=== PATIENT | female | born 1960 | race Caucasian/White ===

== ENCOUNTER 2016-07-27 10:08 | Day surgery (SDC) | payer OTHER ==
[~2016-07-27 10:08] MED LIST: EPINEPHrine 1 MG/10 ML SYR IVP ONE; LIDOCAINE 1% 30 ML SDV ONE; LIDOCAINE 2% JELLY 5 ML TUBE ONE
[2016-07-27] MEDS ORDERED: LIDOCAINE 1% 5 ML SDV ONE (10:30)
[2016-07-27] MEDS ORDERED: ALBUTEROL 3 ML DEYVIAL ONE (10:55)
[2016-07-27] MEDS ORDERED: MIDAZOLAM 2 MG/2 ML VIAL ONE ×2 (10:59→11:32)
[2016-07-27] MEDS ORDERED: fentaNYL 100 MCG/2 ML INJ ONE ×2 (11:00→11:32)
--- NOTE | 2016-07-27 12:46 | GPN ---
[f rep st] PROCEDURE NOTE DATE OF PROCEDURE: 07/27/2016 PROCEDURE: Fiberoptic bronchoscopy. INDICATION: Bilateral hilar adenopathy. ANESTHESIA: She received 4% lidocaine nebulized and 1% lidocaine topically. She also received Vers ed 6 mg, fentanyl 125 mcg. DESCRIPTION OF PROCEDURE: The procedure was performed in the Endoscopy Suite with continuous pulse oximetry, EKG, blood pressure monitoring. Please note this was performed in negative-pressure room and N95 masks were used by all involved. The bronchoscope was entered orally. Vocal cords were visualized and opposed easily. Trachea and c jonah were visualized and showed no endobronchial lesions, a normal-appearing mucosa. Bronchoscope in the left lung: Left upper lobe, lingula, left lower lobe, including sub-segments were subsequent ly visualized and showed no endobronchial lesions and normal-appearing mucosa. Bronchoscope in the right lung: Right upper lobe, right middle lobe, right lower lobe including sub-segments were subse quently visualized and showed no endobronchial lesions and normal-appearing mucosa. Via fluoroscopy , transbronchial biopsies were taken from the right lower lobe. These were sent for pathology. Bro nchoalveolar lavage was then taken from the right lower lobe. This sent for C and S, AFB, fungal cu ltures, and cytology. The patient tolerated the procedure well. There were no apparent complicatio ns. A portable chest x-ray has been called for. /[id number]/MODL
== END 2016-07-27 12:55 | disposition home or self-care (01) ==
LOC: FSGY 10:08
PROVIDERS: ATTEND Internal Medicine Pulmonary Disease
PROC: 0B968ZX Drainage of Right Lower Lobe Bronchus, Via Natural or Artificial Opening Endoscopic, Diagnostic (ICD-10-PCS; principal; 2016-07-27 11:00)
PROC: 0BB68ZX Excision of Right Lower Lobe Bronchus, Via Natural or Artificial Opening Endoscopic, Diagnostic (ICD-10-PCS; principal; 2016-07-27 11:00)
PROC: BB12ZZZ Fluoroscopy of Right Lung (ICD-10-PCS; principal; 2016-07-27 11:00)
DX: R91.8 Other nonspecific abnormal finding of lung field (principal); I48.91 Unspecified atrial fibrillation; F32.9 Major depressive disorder, single episode, unspecified; I10 Essential (primary) hypertension; E66.9 Obesity, unspecified; Z68.31 Body mass index [BMI] 31.0-31.9, adult; Z88.0 Allergy status to penicillin
CPT/HCPCS: J2250; J3010

== ENCOUNTER 2016-09-15 16:25 | Emergency (ER) | payer OTHER ==
[2016-09-15 16:31] VITALS: RESP 20; TEMP 99.1
--- NOTE | 2016-09-15 16:48 | EDPHY ---
H & P Time Seen by Provider: 09/15/16 16:34 HPI/ROS: CHIEF COMPLAINT: Constipation HISTORY OF PRESENT ILLNESS: This patient is a 56 year old female who presents to the Emergency Department complaining of acute constipation over the past ten days. She was started on a 21-day course of Bactrim following a pulmonoscopy ten days prior to arrival when she was diagnosed with sarcoidosis and Pneumocystis pneumonia. She reports inability to pass a bowel movement since starting the Bactrim. She complains of associated intermittent abdominal cramping. She has been passing blood when she strains to pass a bowel movement but no stool. She has attempted to alleviate her symptoms with MiraLAX over the past three days and a Fleet's enema last night without improvement to her symptoms. She also complains of nausea for which she has been taking Zofran. She denies fever, chills, or additional complaints. She has a complex cardiac history further described below. REVIEW OF SYSTEMS: Constitutional: No fever, no chills Eyes: No visual changes ENT: No sore throat Respiratory: No cough, no shortness of breath Cardiac: No chest pain Gastrointestinal: As in HPI Genitourinary: No hematuria, no dysuria Musculoskeletal: No leg pain or swelling Skin: No rash Neurological: No headache, no numbness, no weakness Psychiatric: No depression Past Medical/Surgical History: Pneumonia currently treated with Bactrim. Sarcoidosis. Followed by Dr. Romeo Abbott, pulmonology. Prior medical records reviewed by myself. PMH includes: Hypertension, atrial fibrillation, hyperlipidemia, hypothyroid, fibromyalgia, prediabetes. PSH includes: Cardiac catheterization, cardiac ablation, C5-C6 fusion, shoulder surgeries, L4-L5 laminectomy, sinus surgery. Social History: Non-smoker. at bedside. Smoking Status: Never smoked Physical Exam: General Appearance: Alert, no distress Eyes: Pupils equal and round, no conjunctival pallor or injection ENT, Mouth: Mucous membranes moist Neck: Normal inspection Respiratory: Lungs are clear to auscultation Cardiovascular: Regular rate and rhythm Gastrointestinal: Abdomen is soft with mild epigastric tenderness Rectal: Anal fissure with no active bleeding; no stool in the vault Neurological: A&O, nonfocal, normal gait Skin: Warm and dry, no rash Extremities: Nontender, no pedal edema Psychiatric: Mood and affect normal Constitutional: Initial Vital Signs Temperature (C) 37.3 C 09/15/16 16:27 Heart Rate 86 09/15/16 16:27 Respiratory Rate 20 09/15/16 16:27 Blood Pressure 134/83 H 09/15/16 16:27 O2 Sat (%) 91 L 09/15/16 16:27 O2 Delivery Mode Room Air Allergies/Adverse Reactions: Penicillins Allergy (Severe, Verified 09/15/16 16:26) Swelling/neck,face,throat Home Medications: Medication Instructions Recorded HYDROcodone/APAP 10/325 [[place] 0.5 tab PO Q6 08/29/14 10/325 (*)] amLODIPine BESYLATE [Norvasc 5 mg 5 mg PO DAILY 08/29/14 (*)] Sertraline HCl 07/26/16 Bactrim SS 09/15/16 Miralax 17 gm (*) 09/15/16 Zofran 09/15/16 Medical Decision Making ED Course/Re-evaluation: This is a 56 year old female currently being treated with Bactrim for pneumonia who presents with acute constipation beginning ten days ago when she first began the antibiotics. She complains of associated nausea and abdominal cramping. She is only able to pass blood when attempting to pass a BM. On exam, she is alert and well-appearing. Her rectal exam indicates an anal fissure and no stool in the vault. I discussed with her my recommendation that we proceed with symptomatic treatment at this time given the likelihood that her complaint is secondary to her antibiotic. She is agreeable to this. Soap suds enema and 300ml PO magnesium citrate administered in the ED. 181: Following administration of enema, the patient was able to pass a moderate amount of brown stool without blood. She reports feeling much better at this time and is eager to go home. Abdomen is soft and non-tender on exam. She will be discharged home in good condition with customary return precautions and instructions to follow-up with her curator of manuscripts and PCP as needed. Differential Diagnosis: The differential diagnosis for the patient's constipation included but was not limited to medication side effect, bowel obstruction, urinary tract infection, appendicitis, diverticulitis, or irritable bowel syndrome. - Data Points Medications Given: Discontinued Medications Magnesium Citrate (Magnesium Citrate) 300 ml PO ONCE ONE Stop: 09/15/16 16:56 Last Admin: 04/08/17 17:30 Dose: 300 ml Departure - Departure Disposition: Home, Routine, Self-Care Clinical Impression: Constipation Qualifiers: Constipation type: drug induced constipation Qualified Code(s): K59.03 - Drug induced constipation Condition: Good Instructions: Constipation (ED) Additional Instructions: 1. You can use magnesium citrate as directed to treat constipation. For severe constipation, try administering a Fleet's enema. 2. Follow-up with your primary care provider or your curator of manuscripts to discuss your medications as needed. 3. Return to the Emergency Department if you continue to be unable to pass a bowel movement, have severe abdominal pain, or for other serious concerns. Referrals: Faiza Gleason MD [Primary Care Provider] - As per Instructions Romeo Abbott MD [Medical Doctor] - As per Instructions Report Scribed for: Scarlett Francis Report Scribed by: Jesusita Sepulveda Date of Report: 09/15/16 Time of Report: 16:39 Physician Review and Approval Statement: 09/15/16 16:39 Portions of this note were transcribed by a nuclear medical tech. I personally performed a history, physical exam, medical decision making, and confirmed accuracy of information the transcribed note.
[2016-09-15] MEDS ORDERED: MAGNESIUM CITRATE 300 ML BOTTLE PO ONE (16:55)
[2016-09-15 18:46] VITALS: BP 138/91; PULSE 89; O2SAT 98
== END 2016-09-15 18:46 | disposition home or self-care (01) ==
DX: K59.03 Drug induced constipation (principal); T37.0X5A Adverse effect of sulfonamides, initial encounter; I10 Essential (primary) hypertension; Z95.5 Presence of coronary angioplasty implant and graft

== ENCOUNTER → 2018-04-07 | Outpatient (CLI) | payer OTHER | LOC: CIMAGING 13:14 | PROVIDERS: ATTEND Internal Medicine Pulmonary Disease | DX: J45.909 Unspecified asthma, uncomplicated (principal); J98.4 Other disorders of lung | CPT/HCPCS: 71250-PO ==

== ENCOUNTER 2018-04-18 12:14 | Inpatient (IN) | payer OTHER ==
[~2018-04-18 12:14] MED LIST changes: -EPINEPHrine 1 MG/10 ML SYR IVP ONE; -LIDOCAINE 1% 30 ML SDV ONE; -LIDOCAINE 2% JELLY 5 ML TUBE ONE; +VANCOMYCIN 1.25 GM in NS 250 ML IV ONE; +VANCOMYCIN PHARMACY TO DOSE MISC ONE
[2018-04-18] MEDS ORDERED: BUPIVACAINE/EPI 0.5% 30 ML SDV ONE (12:29)
[2018-04-18] MEDS ORDERED: DEXMEDETOMIDINE HCL IV SCH (12:30)
[2018-04-18] MEDS ORDERED: NS IV SCH (12:30)
[2018-04-18] MEDS ORDERED: TALC 3 GM INTRAPLEURAL VIAL ONE (12:30)
[2018-04-18] MEDS ORDERED: PROPOFOL/EMULSION 500 MG/50 ML BOTTLE IV ONE ×2 (12:41)
[2018-04-18] MEDS ORDERED: fentaNYL 100 MCG/2 ML INJ ONE ×3 (12:42→15:30)
[2018-04-18] MEDS ORDERED: MIDAZOLAM 2 MG/2 ML VIAL ONE (12:42)
[2018-04-18 12:43] LABS: PLATELET COUNT 411 10^3/uL (150-400)
[2018-04-18] MEDS ORDERED: LR 1,000 ML IV ONE (12:46)
--- NOTE | 2018-04-18 13:09 | PDHPUP ---
History & Physical Update H&P update statement: This history and physical update is based on an assessment of the patient which was completed after admission or registration (within 24 hours), but prior to the surgery/procedure. H&P update: H&P reviewed & patient examined, no change in patient's condition since H&P completed
[2018-04-18] MEDS ORDERED: DEXAMETHASONE 4 MG/ML VIAL IVP PRN ×2 (13:16→14:34)
[2018-04-18] MEDS ORDERED: fentaNYL 100 MCG/2 ML INJ IVP PRN (13:16)
[2018-04-18] MEDS ORDERED: LR 500 ML IV PRN ×2 (13:16→14:34)
[2018-04-18] MEDS ORDERED: ALBUTEROL 3 ML DEYVIAL IH PRN ×2 (13:16→14:34)
[2018-04-18] MEDS ORDERED: NALOXONE HCL 0.4 MG/ML INJ IVP PRN ×2 (13:16→14:34)
[2018-04-18] MEDS ORDERED: ONDANSETRON 4 MG/2 ML VIAL IVP PRN ×3 (13:16→15:31)
[2018-04-18] MEDS ORDERED: PROMETHAZINE HCL 25 MG/ML INJ IVP PRN (13:16)
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
[2018-04-18] MEDS ORDERED: DEXAMETHASONE 4 MG/ML VIAL ONE (13:17)
[2018-04-18] MEDS ORDERED: ROCURONIUM 100 MG/10 ML VIAL ONE (13:17)
[2018-04-18] MEDS ORDERED: GLYCOPYRROLATE 0.2 MG/1 ML VIAL ONE (13:17)
[2018-04-18] MEDS ORDERED: ONDANSETRON 4 MG/2 ML VIAL ONE (13:17)
[2018-04-18] MEDS ORDERED: DIAZEPAM 5 MG/ML 1 ML SYR IVP PRN (14:34)
--- NOTE | 2018-04-18 15:26 | POSTOPPROG ---
Post Op Note Date of Operation: 04/18/18 Surgeon: Boris Ray Crm Coordinator: Xavier Anesthesiologist: Sylvia Anesthesia: GET(General Endotracheal) Pre-op Diagnosis: Shortness of breath, bilateral lung nodules Post-op Diagnosis: same Indication: same Procedure: L VATS and Left upper and lower lobe bx Findings: Normal appearing lung Inf/Abcess present in the surg proc area at time of surgery?: No Depth: Organ Space EBL: Minimal Drains: Other (Chest tube) Specimen(s): Left upper lobe bx Left lower lobe bx Both sent for afb, fungus, aerobe/anaerobic, fresh
[2018-04-18] MEDS ORDERED: ONDANSETRON DISINTEGRATING 4 MG TAB PO PRN (15:31)
[2018-04-18] MEDS: fentaNYL 100 MCG/2 ML INJ IVP PRN ×2 (15:33→15:45)
[2018-04-18] MEDS ORDERED: HYDROmorphONE/DILAUDID 2 MG/ML INJ ONE (15:36)
[2018-04-18] MEDS: HYDROmorphONE/DILAUDID 2 MG/ML INJ IVP PRN ×5 (15:45→17:00)
[2018-04-18] MEDS ORDERED: ALBUTEROL 60 PUFFS/8 GM MDI IH PRN (16:03)
--- NOTE | 2018-04-18 16:13 | POSTANESTH ---
Post Anesthetic Evaluation Cardiovascular Status: Normal, Stable, Similar to Pre-Op Cond Respiratory Status: Tx Decrease in SpO2 Level of Consciousness/Mental Status: Mildly Sleepy, Arousable Pain Control: Adequate, Prn Tx Ordered Nausea/Vomiting Control: Adequate, Prn Tx Ordered Complications Possibly Related to Anesthesia: None Noted
[2018-04-18] MEDS: DEXMEDETOMIDINE HCL 400 MCG in NS 100 ML IV SCH ×2 (16:33→19:55)
--- NOTE | 2018-04-18 16:48 | PDMN ---
Medical Necessity Medical necessity: Pt meets inpt criteria per MD order and [facility] [id number], Thoracotomy with Biopsy or Miscellaneous Procedures by Video-Assisted Thoracic Surgery (VATS), Medicare inpt only list. 57 y/o admitted for L VATS and L upper and lower lobe bx and post-op care.
[2018-04-18] MEDS: NS 1,000 ML IV SCH (19:55)
[2018-04-18] MEDS: amLODIPine BESYLATE 5 MG TAB PO SCH (21:30)
[2018-04-18] MEDS: SERTRALINE HCL 50 MG TAB PO SCH (21:30)
[2018-04-18] MEDS: CYCLOBENZAPRINE 10 MG TAB PO PRN (21:31)
[2018-04-18] MEDS: oxyCODONE IR 5 MG TAB PO PRN (21:31)
[2018-04-19] MEDS: DEXMEDETOMIDINE HCL 400 MCG in NS 100 ML IV SCH (04:43)
[2018-04-19] MEDS: NS 1,000 ML IV SCH ×2 (04:43→15:05)
[2018-04-19] MEDS: oxyCODONE IR 5 MG TAB PO PRN ×4 (05:10→22:01)
[2018-04-19] MEDS: LISINOPRIL 10 MG TAB PO SCH (08:40)
[2018-04-19] MEDS: Fluticasone/Vilanterol [Breo Ellipta 200-25 Mcg Inh] 1 EACH IH SCH (08:40)
--- NOTE | 2018-04-19 10:53 | ASMTCMCOM ---
CM Note CM Note Notes: Patient admitted for planned L VATS and LLL/MICHELLE biopsy. She is recovering well from the procedure yesterday. She is normally independent, lives with , and will likely not have any discharge needs. Case Management available if this changes. Date Signed: 04/19/2018 10:52 AM Electronically Signed By:Silke López RN
--- NOTE | 2018-04-19 11:47 | SOAPPROG ---
SOAP Progress Note Assessment/Plan: Assessment: s/p VATS biopsy. Still on Precedex Will continue to wean Home meds cough deep breath Chest tube to water seal Hope to pull tomorrow S: Sore O: Sitting in bed, family and friends at bedside Poor inspiratory effort but clear at apices No air leak Regular rate Plan: 04/19/18 11:46 Objective: Vital Signs Temp Pulse Resp BP Pulse Ox 37.1 C 62 18 109/63 94 04/19/18 11:37 04/19/18 11:37 04/19/18 11:37 04/19/18 11:37 04/19/18 11:37 Laboratory Results 04/18/18 12:35 04/18/18 04/19/18 04/20/18 05:59 05:59 05:59 Intake Total 2382 Output Total 818 Balance 1564 ICD10 Worksheet Patient Problems: Problems Problem Status Onset Chest pain Acute
--- NOTE | 2018-04-19 15:25 | GCON ---
PULMONARY CONSULT. DATE OF CONSULTATION: 04/19/2018 HISTORY OF PRESENT ILLNESS: This patient is a 57-year-old female, who is a patient of Dr. Abbott, wh o carries a diagnosis of asthma and sarcoidosis. She had difficulty with arrhythmias and required an ablation and was followed by difficulty with shortness of breath. Eventually had a CT scan that jonah wed lymphadenopathy. In July 2016, she underwent bronchoscopy with transbronchial biopsy showing noncaseating granulomas. She was apparently treated with steroids at that time and had pulmonary fu nction testing suggestive of obstructive disease. She said she has never used inhalers, however, and serial CT scans showed new infiltrates along with dyspnea that failed to respond to several rounds o f antibiotics with short courses of steroids and no infectious issues. In any case, because of the u ncertainty she was admitted then on April 18 for a left upper lobe and left lower lobe biopsy via V ATS. Surgical procedure itself was uncomplicated and she was brought to the SDU for ongoing pain man agement which includes a Precedex drip. Her pain is reasonably managed at this point, as she is on l ow-dose Precedex today. She did have some minor hemoptysis, but otherwise feels relatively stable. REVIEW OF SYSTEMS: Otherwise negative except as noted in the HPI. PAST MEDICAL HISTORY: Appendicitis, atrial fibrillation, bladder prolapse, chronic pain, depression, hypertension, fibromyalgia, lipoma, migraines, pulmonary nodules, obesity, thrush, SVT sarcoid, trau matic brain injury, vaginal prolapse. PAST SURGICAL HISTORY: An abdominal scar revision, ablation of her atrial fibrillation, shoulder art hroscopy, breast augmentation, C-spine fusion, deviated septum repair, foot surgery, lipoma removal, foraminotomy, neck surgery, rotator cuff. FAMILY HISTORY: Hyperlipidemia, heart disease, stroke, and hypertension. SOCIAL HISTORY: She is a nonsmoker. No alcohol or recreational drug use. She is a [employer] s and declines blood products. CURRENT MEDICATIONS: Tylenol, albuterol p.r.n., Norvasc, Flexeril, Precedex, Dilaudid, Zestril, Zofr an, oxycodone, Zoloft, normal saline. PHYSICAL EXAM: VITAL SIGNS: She was afebrile, blood pressure 109/63, respirations 18, oxygen satura tion 94% on 5 L nasal cannula, heart rate 62. GENERAL: She was awake and alert, in no apparent dist ress, and able to speak in full sentences without using accessory muscles for breathing. HEENT: Pup ils equally round and reactive to light, nonicteric, noninjected. Mucous membranes moist without zahraa thema or exudate. NECK: Supple without adenopathy or jugular vein distention. LUNGS: Breath sound s were diminished, but clear to auscultation bilaterally without wheeze, rubs, rales. Chest tube sit e was clean and dry with good respiratory variation in the tube and no evidence of air leak. HEART: Regular rate and rhythm without murmurs, rubs, gallops. ABDOMEN: Soft, nontender, nondistended wit hout hepatosplenomegaly. EXTREMITIES: No clubbing, cyanosis, or edema. NEUROLOGIC: Nonfocal, incl uding cranial nerves, deep tendon reflexes. SKIN: Warm and dry without evidence of rash. OBJECTIVE DATA: White count 9.9, hematocrit 42, platelets 411; that was preop. Pathology specimens are pending at this time. ASSESSMENT AND PLAN: 1. Abnormal CT scan, status post biopsy. Pathology results are pending at this time. Fungal and AF B cultures are currently pending as well. She otherwise feels relatively stable. 2. Hypoxemia. She does not normally wear oxygen at home, but is not surprisingly requiring oxygen n ow due to atelectasis. We will check another chest x-ray in the morning to make sure that is going w ell. Obviously, her chest tube is being managed by Surgery and may get pulled tomorrow. 3. Asthma. She did have mild obstruction on her pulmonary function tests. Albuterol as needed is r easonable at this time and I will defer to Dr. Abbott for further management of this issue as an outp atient. /[id number]/MODL
[2018-04-19] MEDS: KETOROLAC 15 MG/1 ML SDV IVP PRN ×2 (15:38→22:02)
[2018-04-19] MEDS: SERTRALINE HCL 50 MG TAB PO SCH (20:38)
[2018-04-19] MEDS: amLODIPine BESYLATE 5 MG TAB PO SCH (20:39)
[2018-04-20] MEDS: NS 1,000 ML IV SCH (01:35)
[2018-04-20] MEDS: DEXMEDETOMIDINE HCL 400 MCG in NS 100 ML IV SCH (01:36)
[2018-04-20] MEDS: KETOROLAC 15 MG/1 ML SDV IVP PRN ×3 (05:41→19:42)
[2018-04-20] MEDS: oxyCODONE IR 5 MG TAB PO PRN ×4 (05:41→19:41)
[2018-04-20] MEDS: Fluticasone/Vilanterol [Breo Ellipta 200-25 Mcg Inh] 1 EACH IH SCH (09:15)
--- NOTE | 2018-04-20 09:30 | GOP ---
DATE OF OPERATION: 04/18/2018 SURGEON: Boris Ray MD LEAD TECHNICAL WRITER: Amira Park NP ANESTHESIOLOGIST: Dr. Ward PREOPERATIVE DIAGNOSIS: Pulmonary infiltrates. POSTOPERATIVE DIAGNOSIS: Pulmonary infiltrates, pathology pending. PROCEDURE PERFORMED: Video-assisted thoracoscopic surgery wedge lung biopsy, left lower lobe and lef t upper lobe. FINDINGS: Patient was found to have a grossly normal-appearing lung on superficial evaluation. Ther e were no real palpable nodules. Using the CT scan as guidance, wedge biopsies were taken in both lo bes in areas that were suspicious on the CT scan. The specimens were both sent to Pathology for cult ure and evaluation. Final pathology is pending. DESCRIPTION OF PROCEDURE: Patient was taken to the operating room. She received satisfactory genera l endotracheal anesthesia by Dr. Ward. She was placed in the right lateral decubitus position, pre pped and draped in usual sterile fashion. A short incision was made in the 6th intercostal space mid axillary line. A trocar was introduced, a nd then, the thoracoscope could be introduced. Adequate visualization was obtained. 2 other trocars were placed under direct vision and the lungs were examined with the above-noted findings. There we re no specific targets that we could identify. A large wedge biopsy was taken of the superior segmen t of the lower lobe. This was done with multiple firings of Endo-TRACE stapler, which appeared to be h emostatic. Attention was turned to the midportion of the upper lobe, which was suspicious on CT scan, and a wedg e biopsy was taken in that area as well, again with the Endo-TRACE staplers. Both specimens were extra cted through a small incision at one of the trocar sites. The wound was irrigated. Hemostasis was a ssured. The lung was re-expanded. A #28-Lux[place] chest tube was brought in through one of the trocar sites and secured this at the exit site with 2-0 silk suture and secured to a Pleur-evac drainage sys tem. The incisions were closed with a running 0 Vicryl suture for the musculature, 3-0 Vicryl for the subc u, and 4-0 Monocryl subcuticular stitch for the skin. Blood loss was negligible. There were no comp lications. She was taken to recovery room in good condition. /[id number]/MODL
[2018-04-20] MEDS: LISINOPRIL 10 MG TAB PO SCH (10:22)
--- NOTE | 2018-04-20 11:12 | SOAPPROG ---
SOAP Progress Note Assessment/Plan: Assessment: s/p VATS biopsy. Still on Precedex Will continue to wean Adding Ativan for anxiety Home meds cough deep breath Chest tube to water seal Output increased this am. Will watch another 24 hours. Hope to pull tomorrow S: Sore O: Sitting in bed, smiling Poor inspiratory effort but clear at apices No air leak Regular rate Dressing is dry Decreased at bases Plan: 04/19/18 11:46 04/20/18 11:11 Objective: Vital Signs Temp Pulse Resp BP Pulse Ox 36.5 C 59 L 15 131/55 H 91 L 04/20/18 08:00 04/20/18 09:16 04/20/18 09:16 04/20/18 10:22 04/20/18 09:16 Microbiology 04/18/18 14:40 Mycobacterial Smear (CHRIS) - Final Lung Left Lobe - Tissue Laboratory Results 04/18/18 12:35 04/19/18 04/20/18 04/21/18 05:59 05:59 05:59 Intake Total 2382 3507.5 Output Total 818 180 Balance 1564 3327.5 ICD10 Worksheet Patient Problems: Problems Problem Status Onset Chest pain Acute
[2018-04-20] MEDS: DIAZEPAM 2 MG TAB PO PRN ×2 (11:35→19:42)
--- NOTE | 2018-04-20 13:34 | PDINTPN ---
Hat Mender Progress Note Assessment/Plan: 57 F with history of probable sacroid by TBBx 07/2016 presented with ongoing SOB and abnormal CT. Underwent VATS bx 04/18 of MICHELLE and LLL by Dr. Ray without complications. Path remains pending 04/20. Pain control has been an issue and has required precedex in addition to narcotics and toradol. * Abnormal CT- etiology remains uncertain; path pending. Her sarcoid was treated with systemic steroids by Dr. Abbott * s/p VATS- currently on water seal with chest tube output of 180 ml so remains in place. Precedex weaning off * Anxiety? caution with benzos to prevent delerium. Continue with zoloft for depression Subjective: stable overnight. pain manageable. Objective: Vital Signs Temp Pulse Resp BP Pulse Ox 37.4 C 74 16 133/55 H 94 04/20/18 11:57 04/20/18 11:57 04/20/18 11:57 04/20/18 11:57 04/20/18 11:57 Microbiology 04/18/18 14:40 Mycobacterial Smear (CHRIS) - Final Lung Left Lobe - Tissue Laboratory Results 04/18/18 12:35 04/19/18 04/20/18 04/21/18 05:59 05:59 05:59 Intake Total 2382 3507.5 Output Total 818 180 Balance 1564 3327.5 Physical Exam - Physical Exam General Appearance: alert, no apparent distress, obese EENT: PERRL/EOMI, No scleral icterus (R), No scleral icterus (L) Neck: full range of motion, supple Respiratory: lungs clear, normal breath sounds, decreased breath sounds, No respiratory distress, No accessory muscle use Abdomen: normal bowel sounds, non-tender, soft, No distended Skin: normal color, warm/dry, No cyanosis Lymphatic: no adenopathy Extremities: No pedal edema Neuro/Psych: alert, normal mood/affect, oriented x 3 ICD10 Worksheet Patient Problems: Problems Problem Status Onset Chest pain Acute
[2018-04-20] MEDS: HYDROmorphONE/DILAUDID 1 MG/ML INJ IVP PRN ×2 (15:59→22:34)
[2018-04-20] MEDS: SERTRALINE HCL 50 MG TAB PO SCH (19:41)
[2018-04-20] MEDS: amLODIPine BESYLATE 5 MG TAB PO SCH (19:41)
[2018-04-20] MEDS: CYCLOBENZAPRINE 10 MG TAB PO PRN (22:35)
[2018-04-21] MEDS: oxyCODONE IR 5 MG TAB PO PRN ×5 (00:33→20:09)
[2018-04-21] MEDS: KETOROLAC 15 MG/1 ML SDV IVP PRN ×3 (01:51→19:20)
[2018-04-21] MEDS: DIAZEPAM 2 MG TAB PO PRN (01:51)
[2018-04-21] MEDS: LISINOPRIL 10 MG TAB PO SCH (08:29)
[2018-04-21] MEDS: Fluticasone/Vilanterol [Breo Ellipta 200-25 Mcg Inh] 1 EACH IH SCH (08:30)
[2018-04-21] MEDS ORDERED: POLYETHYLENE GLYCOL 3350 17 GM PKT PO PRN (10:17)
[2018-04-21] MEDS ORDERED: BISACODYL 10 MG SUPP PR PRN (10:17)
[2018-04-21] MEDS ORDERED: MAGNESIUM HYDROXIDE 30 ML UDCUP PO PRN (10:17)
[2018-04-21] MEDS ORDERED: LACTULOSE 20 GM/30 ML UDCUP PO PRN (10:17)
--- NOTE | 2018-04-21 13:22 | SOAPPROG ---
SOAP Progress Note Assessment/Plan: Assessment: PATH PENDING/ WOUND OK/ AFEBRILE/ NO AIR LEAK/ MINIMAL DRAINAGE Plan:DC CHEST TUBE TODAY 04/21/18 13:21 Objective: Vital Signs Temp Pulse Resp BP Pulse Ox 37.2 C 65 14 130/67 H 93 04/21/18 11:21 04/21/18 11:21 04/21/18 11:21 04/21/18 11:21 04/21/18 11:21 Laboratory Results 04/18/18 12:35 04/20/18 04/21/18 04/22/18 05:59 05:59 05:59 Intake Total 3507.5 2569.5 Output Total 724 684 1958 Balance 3327.5 2389.5 -1400 ICD10 Worksheet Patient Problems: Problems Problem Status Onset Chest pain Acute
[2018-04-21] MEDS: HYDROmorphONE/DILAUDID 1 MG/ML INJ IVP PRN (13:46)
--- NOTE | 2018-04-21 15:50 | PDINTPN ---
Scale Clerk Progress Note Assessment/Plan: Assessment: 57 F with history of probable sacroid by TBBx 07/2016 presented with ongoing SOB and abnormal CT. Underwent VATS bx 04/18 of MICHELLE and LLL by Dr. Ray without complications. Path remains pending 04/20. Pain control has been an issue and has required precedex in addition to narcotics and toradol. * Abnormal CT- etiology remains uncertain; path pending. Her sarcoid was treated with systemic steroids by Dr. Abbott * s/p VATS- currently on water seal with chest tube. May remove CT, although output is a bit high so far today. Precedex off. Advancing diet * Anxiety? caution with benzos to prevent delerium. Continue with zoloft for depression Plan: Possibly remove CT later today. Could probably transfer to [facility] soon. Await path. 04/21/18 15:48 Subjective: The patient reports ongoing pain at the chest tube site radiating up to her left shoulder. Her appetite is improved. She has not yet had a bowel movement. Objective: Vital Signs Temp Pulse Resp BP Pulse Ox 37.0 C 75 20 158/71 H 95 04/21/18 15:41 04/21/18 15:41 04/21/18 15:41 04/21/18 15:41 04/21/18 15:41 Laboratory Results 04/18/18 12:35 04/20/18 04/21/18 04/22/18 05:59 05:59 05:59 Intake Total 3507.5 2569.5 Output Total 155 518 2334 Balance 3327.5 2389.5 -2100 Chest x-ray 04/20/2018: Improved bilateral infiltrates. No pneumothorax. Images reviewed by me. Physical Exam - Physical Exam General Appearance: alert, no apparent distress EENT: normal ENT inspection Neck: normal inspection Respiratory: lungs clear, normal breath sounds Cardiac/Chest: regular rate, rhythm, No edema Abdomen: normal bowel sounds, non-tender Skin: normal color, warm/dry Extremities: normal inspection Neuro/Psych: alert, normal mood/affect, oriented x 3 ICD10 Worksheet Patient Problems: Problems Problem Status Onset Chest pain Acute
[2018-04-21] MEDS: CYCLOBENZAPRINE 10 MG TAB PO PRN (19:17)
[2018-04-21] MEDS: amLODIPine BESYLATE 5 MG TAB PO SCH (20:10)
[2018-04-21] MEDS: SENNOSIDES/DOCUSATE SODIUM TAB PO SCH (20:10)
[2018-04-21] MEDS: SERTRALINE HCL 50 MG TAB PO SCH (20:10)
[2018-04-22] MEDS: DIAZEPAM 2 MG TAB PO PRN (00:11)
[2018-04-22] MEDS: oxyCODONE IR 5 MG TAB PO PRN ×3 (00:11→13:19)
[2018-04-22] MEDS: ACETAMINOPHEN 325 MG TAB PO PRN ×2 (00:11→05:54)
[2018-04-22] MEDS: KETOROLAC 15 MG/1 ML SDV IVP PRN ×4 (02:06→23:11)
[2018-04-22] MEDS: SENNOSIDES/DOCUSATE SODIUM TAB PO SCH ×2 (09:45→21:27)
[2018-04-22] MEDS: LISINOPRIL 10 MG TAB PO SCH (09:45)
[2018-04-22] MEDS: Fluticasone/Vilanterol [Breo Ellipta 200-25 Mcg Inh] 1 EACH IH SCH (10:21)
--- NOTE | 2018-04-22 12:16 | SOAPPROG ---
SOAP Progress Note Assessment/Plan: Assessment: 57yo female s/ left VATS, lung Bx, path still pending Doing well, little pain when moving left chest wall, tolerating regular diet PE awake, alert Chest left tube in place, no leak, CTA B/L Plan: removed CT without complication, dressing should remain in place, dry, for 3 days chest xray pending saw pt with Dr Ray 04/22/18 12:14 Objective: Vital Signs Temp Pulse Resp BP Pulse Ox 37.1 C 81 16 136/77 H 90 L 04/22/18 12:00 04/22/18 12:00 04/22/18 12:00 04/22/18 12:00 04/22/18 12:00 Laboratory Results 04/18/18 12:35 04/21/18 04/22/18 04/23/18 05:59 05:59 05:59 Intake Total 2569.5 650 Output Total 180 3620 Balance 2389.5 -2970 ICD10 Worksheet Patient Problems: Problems Problem Status Onset Chest pain Acute
[2018-04-22] MEDS: DIPHENHYDRAMINE CREAM TP PRN (15:09)
--- NOTE | 2018-04-22 15:58 | ASMTCMCOM ---
CM Note CM Note Notes: VATS procedure, chest tubes out, pain better to transfer. May not have discharge needs. Date Signed: 04/22/2018 03:57 PM Electronically Signed By:Selena Cochran LCSW
[2018-04-22] MEDS: amLODIPine BESYLATE 5 MG TAB PO SCH (21:24)
[2018-04-22] MEDS: SERTRALINE HCL 50 MG TAB PO SCH (21:25)
[2018-04-23] MEDS: LISINOPRIL 10 MG TAB PO SCH (08:39)
[2018-04-23] MEDS: SENNOSIDES/DOCUSATE SODIUM TAB PO SCH (08:40)
[2018-04-23] MEDS: DIPHENHYDRAMINE CREAM TP PRN (08:41)
[2018-04-23] MEDS: Fluticasone/Vilanterol [Breo Ellipta 200-25 Mcg Inh] 1 EACH IH SCH (10:26)
--- NOTE | 2018-04-23 11:01 | SOAPPROG ---
SOAP Progress Note Assessment/Plan: Assessment: 57 y/o F s/p L VATS and wedge biopsies for multiple lung nodules POD #5 S: Doing well. Pain much improved since chest tubes came out yesterday. Denies SOB. O: Alert Afebrile RRR No increased WOB, CTA bilaterally. Chest tube site dressing intact. Plan: D/c home today. Leave CT dressing on for 5 days total. 04/23/18 10:59 Objective: Vital Signs Temp Pulse Resp BP Pulse Ox 37.1 C 82 16 130/112 H 95 04/23/18 08:00 04/23/18 10:27 04/23/18 10:27 04/23/18 08:00 04/23/18 10:27 Microbiology 04/18/18 14:40 Mycobacterial Smear (CHRIS) - Final Lung Left Lobe - Tissue Laboratory Results 04/18/18 12:35 04/22/18 04/23/18 04/24/18 05:59 05:59 05:59 Intake Total 650 400 Output Total 3620 Balance -2970 400 ICD10 Worksheet Patient Problems: Problems Problem Status Onset Chest pain Acute
[2018-04-23] MEDS: ACETAMINOPHEN 325 MG TAB PO PRN (11:04)
[2018-04-23 12:16] VITALS: BP 130/96
== END 2018-04-23 16:05 | disposition home or self-care (01) | DRG 168 ==
LOC: F3E 12:14 → OBSVTOIN 15:26 → F2N 17:20 → F3E 04-22 12:02
PROVIDERS: ADMIT Surgery; ATTEND Surgery
DX: J44.9 Chronic obstructive pulmonary disease, unspecified (principal); D86.0 Sarcoidosis of lung; I10 Essential (primary) hypertension; G62.9 Polyneuropathy, unspecified; J45.909 Unspecified asthma, uncomplicated
CPT/HCPCS: 88323-90; 88342; J1100; J1170; J1885; J2250; J2405; J2704; J3010; J3370

== ENCOUNTER 2018-05-07 20:48 | Emergency (ER) | payer OTHER ==
[2018-05-07] MEDS ORDERED: ALBUTEROL 3 ML DEYVIAL IH ONE (21:31)
[2018-05-07] MEDS ORDERED: methylPREDNISolone SOD SUCC 125 MG/2 ML VIAL IVP ONE (21:31)
[2018-05-07] MEDS ORDERED: RANITIDINE 50 MG/2 ML VIAL IVP ONE (21:31)
--- NOTE | 2018-05-07 21:31 | EDPHY ---
General Time Seen by Provider: 05/07/18 21:16 Narrative: CHIEF COMPLAINT: Hives HISTORY OF PRESENT ILLNESS: Patient presents by private vehicle with her spouse with complaints of hives. She states that she developed hives to her left side of her abdomen last night. This has quickly spread to the rest of her trunk, arms, legs, vaginal and groin. It is extremely pruritic to her. She has no pain. No vesicles or lesions. No chest pain or cough. She has ongoing shortness of breath that is unchanged for her. She has no new medications, soaps or environmental changes. She does take lisinopril and has taken this for years with no new refills. She does not take Lamictal. She has no previous incidence of anaphylaxis but does have ongoing suspected allergic reactions to unknown substances. She is 2 weeks postop from a VATS procedure for lung biopsy with reported inflammatory changes. She has no other associated complaints or modifying factors. REVIEW OF SYSTEMS: 10 systems were reviewed and negative with the exception of the elements mentioned in the history of present illness. PCP: Dr. Lopez SPECIALISTS: Pulmonology, Dr. Abbott General surgery, Dr. Ray PAST MEDICAL HISTORY: Degenerative disc, hypertension, SVT, pneumonia, lipoma, pulmonary nodules, possible sarcoidosis, fibromyalgia PAST SURGICAL HISTORY: Baths with lung biopsy, bilateral shoulder surgery, right foot surgery, thumb surgery, nerve stimulator implant, bronchoscopy SOCIAL HISTORY: Never smoker. Lives independently with her spouse. FAMILY HISTORY: Noncontributory EXAMINATION: Vitals: Triage VS reviewed General Appearance: Alert, no distress Head: normocephalic, atraumatic Eyes: Pupils equal and round, no conjunctival pallor or injection ENT, Mouth: Mucous membranes moist. Airway widely patent. There is no swelling of the lips or tongue. No stridor. No muffled voice. Neck: Normal inspection, supple, non-tender Respiratory: Mild rhonchi. No wheezing or crackles. Cardiovascular: Regular rate and rhythm Gastrointestinal: Abdomen is soft and nontender Back: non-tender, no bony abnormalities Neurological: A&O, nonfocal, normal gait Skin: Warm and dry. Diffuse urticarial rash that blanches located on the trunk , arms and legs. No petechiae or purpura. Well-healed surgical incisions on the left side of the thorax a back. Extremities: Nontender, no pedal edema Psychiatric: Mood and affect normal DIFFERENTIAL DIAGNOSES: Including but not limited to acute urticaria, anaphylaxis, drug reaction MDM: 9:30 p.m. Acute urticarial rash that is diffuse. There is no involvement of the face, neck her airway. Her airway is patent with no swelling, trismus, drooling or stridor. The rash is very pruritic and is blanchable with no petechiae or purpura. She does not take Lamictal. She has no changes in any intake of food , medication or topical substances. She is in no acute distress. She is very symptomatic from the rash, thus an IV will be established. Medications have been ordered. She is requesting laboratory studies. I have ordered a chest x- ray she does have reportedly baseline shortness of breath, but she is 2 weeks postop from a VATS procedure. 10:15 p.m. Laboratory studies reveal mild hyperglycemia. Patient re-evaluated. She is feeling significantly better with almost complete resolution of the rash. She has no airway involvement or complaints of difficulty breathing or swallowing I discussed her elevated blood sugar with her and she informed that she forgot to tell me about prednisone that she started this morning. He denies any history of diabetes. I discussed the need to follow up with primary care physician for the elevated blood sugar, particularly with her recommended daily steroid therapy from her glass science engineer we discussed Benadryl, hydroxyzine and Pepcid for suppression of the rash. We discussed strict ED precautions for return of the rash, involvement of the face, neck or airway. She is comfortable this plan. She is discharged home stable condition. SUPERVISION: This patient was independently evaluated without direct involvement of or examination by the attending physician. CONSULTATION: None - Diagnostics Imaging Results: Imaging Impressions Chest X-Ray 05/07/18 21:31 Impression: 1. Decrease in size of left upper lobe postsurgical changes. 2. No evidence of pneumothorax. - History Smoking Status: Never smoked - Objective Vital Signs: Initial Vital Signs Temperature (C) 98.2 F 05/07/18 20:52 Heart Rate 96 05/07/18 20:52 Respiratory Rate 20 05/07/18 20:52 Blood Pressure 155/90 H 05/07/18 20:52 O2 Sat (%) 94 05/07/18 20:52 O2 Delivery Mode Room Air Allergies/Adverse Reactions: Penicillins Allergy (Verified 05/07/18 20:49) Swelling of neck, face, throat verapamil Allergy (Verified 05/07/18 20:49) Anaphylaxis Home Medications: Medication Instructions Recorded HYDROcodone/APAP [Bartow 1 tab PO TID PRN 08/29/14 (*)] amLODIPine BESYLATE [Norvasc 5 mg 5 mg PO HS 08/29/14 (*)] Sertraline HCl [Zoloft 50mg (*)] 50 mg PO HS 07/26/16 Albuterol [Proventil Inhaler HFA 1 - 2 puffs IH Q4H PRN 04/15/18 (*)] Aspirin [Aspirin 81mg (*)] 81 mg PO HS 04/15/18 Cyclobenzaprine [Flexeril 10 MG 10 mg PO DAILY PRN 04/15/18 (*)] Fluticasone/Vilanterol [Breo 1 each IH DAILY 04/15/18 Ellipta 200-25 Mcg INH] Lisinopril [PRINIVIL] 10 mg PO DAILY 04/17/18 Prednisone 05/07/18 hydrOXYzine HCL [hydrOXYzine HCL 25 mg PO Q6 PRN #15 tab 05/07/18 (RX)] Laboratory Results: Laboratory Results 05/07/18 21:35 05/07/18 21:35 05/07/18 05/07/18 21:35 21:35 WBC 7.86 10^3/uL 10^3/uL (3.80-9.50) RBC 4.08 10^6/uL L 10^6/uL (4.18-5.33) Hgb 12.6 g/dL g/dL (12.6-16.3) Hct 37.3 % L % (38.0-47.0) MCV 91.4 fL fL (81.5-99.8) MCH 30.9 pg pg (27.9-34.1) MCHC 33.8 g/dL g/dL (32.4-36.7) RDW 12.5 % % (11.5-15.2) Plt Count 404 10^3/uL H 10^3/uL (150-400) MPV 10.5 fL fL (8.7-11.7) Neut % (Auto) 75.4 % H % (39.3-74.2) Lymph % (Auto) 19.0 % % (15.0-45.0) [place] % (Auto) 4.5 % % (4.5-13.0) Eos % (Auto) 0.1 % L % (0.6-7.6) Baso % (Auto) 0.5 % % (0.3-1.7) Nucleat RBC Rel Count 0.0 % % (0.0-0.2) Absolute Neuts (auto) 5.93 10^3/uL 10^3/uL (1.70-6.50) Absolute Lymphs (auto) 1.49 10^3/uL 10^3/uL (1.00-3.00) Absolute Monos (auto) 0.35 10^3/uL 10^3/uL (0.30-0.80) Absolute Eos (auto) 0.01 10^3/uL L 10^3/uL (0.03-0.40) Absolute Basos (auto) 0.04 10^3/uL 10^3/uL (0.02-0.10) Absolute Nucleated RBC 0.00 10^3/uL 10^3/uL (0-0.01) Immature Gran % 0.5 % % (0.0-1.1) Immature Gran # 0.04 10^3/uL 10^3/uL (0.00-0.10) Sodium 139 mEq/L mEq/L (135-145) Potassium 3.6 mEq/L mEq/L (3.3-5.0) Chloride 106 mEq/L mEq/L (97-110) Carbon Dioxide 24 mEq/l mEq/l (22-31) Anion Gap 9 mEq/L mEq/L (6-14) BUN 18 mg/dL mg/dL (7-23) Creatinine 0.5 mg/dL L mg/dL (0.6-1.0) Estimated GFR > 60 Glucose 215 mg/dL H mg/dL (70-100) Calcium 9.3 mg/dL mg/dL (8.5-10.4) Medications Given: Discontinued Medications Albuterol (Proventil Neb) 3 ml IH EDNOW ONE Stop: 05/07/18 21:32 Last Admin: 05/07/18 21:44 Dose: 3 ml Diphenhydramine HCl (Benadryl Injection) 25 mg IVP EDNOW ONE Stop: 05/07/18 21:32 Last Admin: 05/07/18 21:47 Dose: 25 mg Methylprednisolone Sodium Succinate (Solu-Medrol) 125 mg IVP EDNOW ONE Stop: 05/07/18 21:32 Last Admin: 05/07/18 21:48 Dose: 125 mg Ranitidine HCl (Zantac) 50 mg IVP EDNOW ONE Stop: 05/07/18 21:32 Last Admin: 05/07/18 21:48 Dose: 50 mg Departure - Departure Disposition: Home, Routine, Self-Care Clinical Impression: Urticaria, Hyperglycemia Condition: Good Instructions: Urticaria (ED), Nondiabetic Hyperglycemia (ED) Additional Instructions: 1. Benadryl 25-50 mg every 6 hr as needed for itching 2. Hydroxyzine 25 mg as prescribed as needed for itching 3. Zyrtec yoxo-mnf-sipclic 1 pill by mouth once daily as needed for itching 4. Contact her primary care physician to discuss her elevated blood sugar and your ongoing steroid therapy. 5. ED precautions as discussed Referrals: Faiza Gleason MD [Primary Care Provider] - As per Instructions Romeo Abbott MD [Medical Doctor] - As per Instructions Prescriptions: hydrOXYzine HCL [hydrOXYzine HCL (RX)] 25 mg PO Q6 PRN #15 tab PRN Reason: Itching
[2018-05-07 21:48] LABS: PLATELET COUNT 404 10^3/uL (150-400)
[2018-05-07 22:43] VITALS: BP 144/76
== END 2018-05-07 22:42 | disposition home or self-care (01) ==
DX: L50.9 Urticaria, unspecified (principal); R73.9 Hyperglycemia, unspecified; I10 Essential (primary) hypertension; M79.7 Fibromyalgia
CPT/HCPCS: 96374; J1200; J2780; J2930; J7613

== ENCOUNTER 2018-06-03 20:02 | Observation (INO) | payer OTHER ==
[2018-06-03] MEDS ORDERED: IPRATROPIUM/ALBUTEROL 3 ML DEYVIAL IH ONE (20:27)
--- NOTE | 2018-06-03 20:27 | EDPHY ---
H & P Stated Complaint: SOB cough x 2 days Time Seen by Provider: 06/03/18 20:14 HPI/ROS: CHIEF COMPLAINT: Cough, shortness of breath HISTORY OF PRESENT ILLNESS: 57-year-old female with newly diagnosed interstitial pneumonitis presents with cough and shortness of breath. Four weeks ago she was admitted for shortness of breath. She underwent a lung biopsy and was diagnosed with interstitial pneumonitis. She has been on high- dose steroids since the diagnosis. Onset of nasal congestion, laryngitis and a cough yesterday. Today the cough worsened and is associated with shortness of breath. She is now short of breath at rest. No known fever and no chills. Tolerating oral fluids and food well. REVIEW OF SYSTEMS: complete 10 point ROS reviewed and is negative except for the noted elements in the HPI - Personal History Tetanus Vaccine Date: within 10 years - Medical/Surgical History Hx Asthma: No Hx Chronic Respiratory Disease: No Hx Diabetes: No Hx Cardiac Disease: Yes Hx Renal Disease: No Hx Cirrhosis: No Hx Alcoholism: No Hx HIV/AIDS: No Hx Splenectomy or Spleen Trauma: No Other PMH: cervical fusion 5-6, lumbar lami 4-5. htn/SVT WITH ABLATION 2014. pneumonia, shoulder sx , jess shoulder. rt foot sx, lipoma rt shoulder blade, bronchoscopy 07/27, pulmonary nodules, sarcoidosis ? poss. nerve stim implant lower rt hip 2016, thumb sx, CRP, fibromyagia - Social History Smoking Status: Never smoked Alcohol Use: Sober Drug Use: None Additional Social History: - Physical Exam Exam: General Appearance: Alert, pleasant, nontoxic-appearing Eyes: Pupils equal and round, no conjunctival pallor or injection ENT, Mouth: Mucous membranes moist Neck: Normal inspection Respiratory: Diffuse rhonchi and wheezing Cardiovascular: Regular rate and rhythm Gastrointestinal: Abdomen is soft and nontender Neurological: A&O, nonfocal exam Skin: Warm and dry, no rash Extremities: Nontender, no pedal edema Psychiatric: Mood and affect normal Constitutional: Initial Vital Signs Temperature (C) 36.7 C 06/03/18 20:07 Heart Rate 92 06/03/18 20:07 Respiratory Rate 28 H 06/03/18 20:07 Blood Pressure 154/97 H 06/03/18 20:07 O2 Sat (%) 78 L 06/03/18 20:07 O2 Delivery Mode Nasal Cannula O2 (L/minute) 3 Allergies/Adverse Reactions: Penicillins Allergy (Verified 05/07/18 20:49) Swelling of neck, face, throat verapamil Allergy (Verified 05/07/18 20:49) Anaphylaxis Home Medications: Medication Instructions Recorded Albuterol [Proventil Inhaler HFA 1 - 2 puffs IH Q4HRS PRN 06/03/18 (*)] Aspirin EC [Aspirin EC 81 mg (*)] 81 mg PO HS 06/03/18 Fluticasone/Vilanterol [Breo 1 each IH DAILY 06/03/18 Ellipta 200-25 Mcg INH] Hydrocodone/Acetaminophen 1 each PO BID PRN 06/03/18 [Hydrocodone-Acetamin 10-325 mg] Sertraline HCl [Zoloft 50mg (*)] 50 mg PO HS 06/03/18 amLODIPine BESYLATE [Norvasc 5 mg 5 mg PO HS 06/03/18 (*)] Lisinopril [Zestril 10 mg (*)] 20 mg PO HS #0 06/04/18 Sulfamethoxazole/Trimethoprim 1 each PO DAILY #90 tablet 06/04/18 [Bactrim 400-80 mg Tablet] predniSONE 20 mg PO BID@08,14 #0 06/04/18 Medical Decision Making - Diagnostics Imaging Results: Chest X-Ray 06/03/18 20:14 Impression: 1. Hazy groundglass attenuation involving the mid to lower lungs that could represent patchy areas of pneumonitis without consolidation. Imaging: I viewed and interpreted images myself ED Course/Re-evaluation: Patient presents with severe hypoxia and cough. Lung exam reveals diffuse rhonchi. Meets SIRS criteria with tachypnea and tachycardia. Initial lactate is normal. A DuoNeb was given, after which the patient felt better and the cough lessened. Lung exam after the DuoNeb revealed improved lung exchanged and more wheezing. Chest x-ray reveals bilateral pneumonitis. Blood cultures were drawn and Rocephin and Zithromax IV given. The patient has been on prednisone 40 mg a day. Solu-Medrol 60 mg IV given. The hospitalist service was consulted for admission. Differential Diagnosis: includes though not limited to pulm edema, ACS, pneumonia, bronchospasm, PTX, empyema - Data Points Laboratory Results: Laboratory Results 06/03/18 21:05 06/03/18 21:05 Microbiology Results: MICROBIOLOGY 06/03/18 21:05 Blood Blood Culture - Preliminary Medications Given: Discontinued Medications Acetaminophen (Tylenol) 650 mg PO Q4HRS PRN PRN Reason: Pain, Mild/Fever, Can Take PO Stop: 11/30/18 22:21 Last Admin: 06/04/18 03:07 Dose: 650 mg Albuterol (Proventil Neb) 3 ml IH EDNOW ONE Stop: 06/03/18 21:48 Last Admin: 06/03/18 21:57 Dose: 3 ml Albuterol (Proventil Neb) 3 ml IH QID S[place]AIDA Stop: 12/01/18 05:59 Last Admin: 06/04/18 09:15 Dose: 3 ml Albuterol/Ipratropium (Duoneb) 3 ml IH EDNOW ONE Stop: 06/03/18 20:28 Last Admin: 06/03/18 20:39 Dose: 3 ml Enoxaparin Sodium (Lovenox) 40 mg SC DAILY [facility] Stop: 12/01/18 08:59 Last Admin: 06/04/18 07:54 Dose: 40 mg Guaifenesin/Codeine Phosphate (Robitussin Ac) 10 ml PO Q6HRS PRN PRN Reason: Cough, Moderate Stop: 11/30/18 23:52 Last Admin: 06/04/18 07:50 Dose: 10 ml Levofloxacin/Dextrose (Levaquin 750 Mg (Premix)) 150 mls @ 100 mls/hr IV EDNOW ONE PRN Reason: Protocol Stop: 06/03/18 23:15 Last Admin: 06/03/18 21:57 Dose: 150 mls Lidocaine/Diphenhydramine/Alumin/Mg (Maalox/Diphenhydramine/Lido) 5 ml PO PRN PRN PRN Reason: Mucositis, Mouth Pain Stop: 11/30/18 23:15 Last Admin: 06/04/18 07:52 Dose: 5 ml Methylprednisolone Sodium Succinate (Solu-Medrol) 60 mg IVP EDNOW ONE Stop: 06/03/18 21:48 Last Admin: 06/03/18 21:57 Dose: 60 mg Methylprednisolone Sodium Succinate (Solu-Medrol) 60 mg IVP Q6HRS [facility] Stop: 12/01/18 05:59 Last Admin: 06/04/18 12:47 Dose: 60 mg Nystatin (Mycostatin Oral Liquid) 500,000 unit PO QID SORAIDA PRN Reason: Protocol Stop: 07/03/18 23:29 Last Admin: 06/04/18 12:49 Dose: 500,000 unit Departure - Departure Disposition: [facility] Inpatient Acute Clinical Impression: Pneumonitis, Bronchospasm, Acute respiratory failure with hypoxia Condition: Fair
[2018-06-03 21:23] LABS: PLATELET COUNT 287 10^3/uL (150-400)
[2018-06-03] MEDS ORDERED: methylPREDNISolone SOD SUCC 125 MG/2 ML VIAL IVP ONE (21:47)
[2018-06-03] MEDS ORDERED: ALBUTEROL 3 ML DEYVIAL IH ONE (21:47)
[2018-06-03] MEDS ORDERED: ONDANSETRON 4 MG/2 ML VIAL IVP PRN (22:22)
[2018-06-03] MEDS ORDERED: ACETAMINOPHEN 325 MG TAB PO PRN (22:22)
[2018-06-03] MEDS ORDERED: ALBUTEROL 3 ML DEYVIAL IH PRN (22:22)
[2018-06-03] MEDS ORDERED: ONDANSETRON DISINTEGRATING 4 MG TAB PO PRN (22:22)
--- NOTE | 2018-06-03 23:22 | PDGENHP ---
History and Physical - Chief Complaint Shortness of breath - History of Present Illness 57 yo F w/ hx of ILD(HS) and HTN presents with shortness of breath. The patient has been doing poorly from a respiratory standpoint for over a month. She was admitted here in April for VATS lung biopsy. This biopsy was consistent with hypersensitivity pneumonitis. She saw Dr. Abbott on 05/06 with ongoing dyspnea and was put on daily prednisone therapy. This was initially 60 mg qD, which she did not tolerate well, so she was decreased to 40 mg qD two weeks ago. She is on this dose still today. Over the last 4 days she developed subjective fevers, chills, sore throat, rhinorrhea, and cough. Over the last 2 days shortness of breath and progressed in severity until she presented to the ED today. In the ED her O2 sat was noted to be in the 70's on RA. She does not use O2 at baseline. Symptomatically she feels improved after nebulizer treatments. Case discussed with Dr. Linton; records reviewed and summarized above. History Information - Allergies/Home Medication List Allergies/Adverse Reactions: Penicillins Allergy (Verified 05/07/18 20:49) Swelling of neck, face, throat verapamil Allergy (Verified 05/07/18 20:49) Anaphylaxis Home Medications: Albuterol [Proventil Inhaler HFA (*)] 1 - 2 puffs IH Q4HRS PRN 06/03/18 [Last Taken 05/13/18] Aspirin EC [Aspirin EC 81 mg (*)] 81 mg PO HS 06/03/18 [Last Taken 06/02/18] Fluticasone/Vilanterol [Breo Ellipta 200-25 Mcg INH] 1 each IH DAILY 06/03/18 [ Last Taken 06/02/18] Hydrocodone/Acetaminophen [Hydrocodon-Acetaminophn 10-325] 1 each PO BID PRN [Last Taken 06/03/18] Lisinopril [Zestril 10 mg (*)] 10 mg PO HS 06/03/18 [Last Taken 06/02/18] Sertraline HCl [Zoloft 50mg (*)] 50 mg PO HS 06/03/18 [Last Taken 06/02/18] amLODIPine BESYLATE [Norvasc 5 mg (*)] 5 mg PO HS 06/03/18 [Last Taken 06/02/18] predniSONE 20 mg PO BID@08,14 06/03/18 [Last Taken 06/03/18] I have personally reviewed and updated: family history, medical history - Past Medical History hypertension Additional medical history: ILD (HS) - Surgical History Reports: ablation, spinal surgery Additional surgical history: VATS lung biopsy 04/27 - Family History Positive for: CAD, hypertension, stroke - Social History Smoking Status: Never smoked Alcohol Use: Sober Drug Use: None Review of Systems Review of Systems: ROS: 10pt was reviewed & negative except for what was stated in HPI & below Physical Exam Physical Exam: Temp Pulse Resp BP Pulse Ox 36.8 C 85 18 134/74 H 95 06/03/18 22:49 06/03/18 22:49 06/03/18 22:49 06/03/18 22:49 06/03/18 22:49 O2 (L/minute) 3 Constitutional: no apparent distress, not in pain Eyes: PERRL, EOMI Ears, Nose, Mouth, Throat: moist mucous membranes, no oral mucosal ulcers Cardiovascular: regular rate and rhythym, no murmur, rub, or gallop Respiratory: expiratory wheeze, inspiratory crackles, rhonchi Gastrointestinal: normoactive bowel sounds, soft, non-tender abdomen Skin: warm, normal color Musculoskeletal: full muscle strength, no muscle tenderness Neurologic: AAOx3, CN II-XII Intact Psychiatric: interacting appropriately, not anxious Lab Data & Imaging Review 06/03/18 21:05 06/03/18 21:05 WBC 12.83 10^3/uL (3.80-9.50) H 06/03/18 21:05 RBC 4.31 10^6/uL (4.18-5.33) 06/03/18 21:05 Hgb 13.3 g/dL (12.6-16.3) 06/03/18 21:05 Hct 42.1 % (38.0-47.0) 06/03/18 21:05 MCV 97.7 fL (81.5-99.8) 06/03/18 21:05 MCH 30.9 pg (27.9-34.1) 06/03/18 21:05 MCHC 31.6 g/dL (32.4-36.7) L 06/03/18 21:05 RDW 14.2 % (11.5-15.2) 06/03/18 21:05 Plt Count 287 10^3/uL (150-400) 06/03/18 21:05 MPV 9.9 fL (8.7-11.7) 06/03/18 21:05 Neut % (Auto) 76.5 % (39.3-74.2) H 06/03/18 21:05 Lymph % (Auto) 11.4 % (15.0-45.0) L 06/03/18 21:05 [place] % (Auto) 8.6 % (4.5-13.0) 06/03/18 21:05 Eos % (Auto) 1.8 % (0.6-7.6) 06/03/18 21:05 Baso % (Auto) 0.7 % (0.3-1.7) 06/03/18 21:05 Nucleat RBC Rel Count 0.0 % (0.0-0.2) 06/03/18 21:05 Absolute Neuts (auto) 9.82 10^3/uL (1.70-6.50) H 06/03/18 21:05 Absolute Lymphs (auto) 1.46 10^3/uL (1.00-3.00) 06/03/18 21:05 Absolute Monos (auto) 1.10 10^3/uL (0.30-0.80) H 06/03/18 21:05 Absolute Eos (auto) 0.23 10^3/uL (0.03-0.40) 06/03/18 21:05 Absolute Basos (auto) 0.09 10^3/uL (0.02-0.10) 06/03/18 21:05 Absolute Nucleated RBC 0.00 10^3/uL (0-0.01) 06/03/18 21:05 Immature Gran % 1.0 % (0.0-1.1) 06/03/18 21:05 Immature Gran # 0.13 10^3/uL (0.00-0.10) H 06/03/18 21:05 D-Dimer 0.42 ug/mLFEU (0.00-0.50) 06/03/18 21:05 VBG Lactic Acid 1.4 mmol/L (0.7-2.1) 06/03/18 21:05 Sodium 140 mEq/L (135-145) 06/03/18 21:05 Potassium 3.5 mEq/L (3.5-5.2) 06/03/18 21:05 Chloride 107 mEq/L (97-110) 06/03/18 21:05 Carbon Dioxide 27 mEq/l (22-31) 06/03/18 21:05 Anion Gap 6 mEq/L (6-14) 06/03/18 21:05 BUN 22 mg/dL (7-23) 06/03/18 21:05 Creatinine 0.9 mg/dL (0.6-1.0) 06/03/18 21:05 Estimated GFR > 60 06/03/18 21:05 Glucose 139 mg/dL (70-100) H 06/03/18 21:05 Calcium 8.8 mg/dL (8.5-10.4) 06/03/18 21:05 Procalcitonin 0.13 ng/mL (0.02-0.10) H 06/03/18 21:05 Nasal Influenza A PCR NEGATIVE FOR FLU A (NEGATIVE) 06/03/18 22:10 Nasal Influenza B PCR NEGATIVE FOR FLU B (NEGATIVE) 06/03/18 22:10 Imaging Review: Imaging Impressions Chest X-Ray 06/03/18 20:14 Impression: 1. Hazy groundglass attenuation involving the mid to lower lungs that could represent patchy areas of pneumonitis without consolidation. Visualized and Interpreted Chest x-ray results: Yes Chest X-Ray results: infiltrate (Bilateral lower lobes) Assessment & Plan Assessment: 57 yo F w/ hx of ILD (HS) presents with exacerbation most likely due to viral infection. Plan: 1. ILD with acute exacerbation - Recent biopsy consistent with hypersensitivity pneumonitis. She presents with 4 days of viral symptoms and significant hypoxia. Significant wheezing and respiratory distress on admission improving with nebulizer treatments. CXR (personally reviewed/interpreted) demonstrated bilateral pneumonitis. - Albuterol QID eze + q2h PRN - Methylprednisolone 60 mg IV q6h (on prednisone 40 mg qD chronically) - S/p levofloxacin x1 in ED; will monitor off of further antibiotics - Respiratory PCR, procalcitonin, blood cultures ordered 2. AHRF - O2 sats of 70's on RA; now stable on 3 L/min via NC. This is due to ILD exacerbation and pneumonitis. - Acute management as above - Incentive spirometer ordered - O2 PRN to maintain O2 sats >89% 3. HTN - Continue home amlodipine and lisinopril. Diet - Regular Code - Full Ppx - LMWH Dispo - Admit under observation status
[2018-06-04] MEDS: MBX SOLN 30 ML BOTTLE PO PRN ×2 (00:02→07:52)
[2018-06-04] MEDS: ALBUTEROL 3 ML DEYVIAL IH SCH ×2 (03:24→09:15)
[2018-06-04] MEDS: methylPREDNISolone SOD SUCC 125 MG/2 ML VIAL IVP SCH ×2 (05:03→12:47)
[2018-06-04] MEDS: NYSTATIN SUSP 500000 UNIT/5 ML UD LIQ PO SCH ×3 (05:03→12:49)
[2018-06-04 05:21] LABS: PLATELET COUNT 320 10^3/uL (150-400)
[2018-06-04 07:39] VITALS: BP 165/99
[2018-06-04] MEDS: guaiFENesin/CODEINE PHOS 10 ML UDCUP PO PRN ×2 (07:50)
[2018-06-04] MEDS ORDERED: ENOXAPARIN 40 MG/0.4 ML SYR SC SCH (09:00)
--- NOTE | 2018-06-04 09:42 | PDHOMEO2F ---
Home Oxygen Face to Face Home Orders: I certify that a physician or a nurse practitioner or physician's first assistant has had a [id number] encounter with this patient on the date of this order due to the diagnosis listed, which relates to the primary reason the patient requires home oxygen. Alternative treatments have been tried, or considered, and deemed ineffective. It is anticipated that supplemental oxygen will result in improvement with treatment. Home oxygen qualifying diagnosis: Acute hypoxemic respiratory failure, Interstitial lung disease Home oxygen secondary diagnosis: RSV infection, acute bronchitis SpO2 on room air (%): 86 Frequency of home oxygen needed: with activity, continuous, during sleep Home oxygen liters per minute: 2 Home oxygen delivery device: nasal cannula Concentrator: Yes E-tanks for mobility and back up: Yes If ordering portable O2, is the patient mobile in the home?: Yes I certify that, based on these findings, the home oxygen is medically necessary for this patient for the following length of time. Length of time home oxygen needed: 1 month
--- NOTE | 2018-06-04 10:04 | PDDCSUM ---
Discharge Summary Discharge Summary: Date of Admission: June 03, 2018 Date of Discharge: June 04, 2018 Discharge Diagnoses: RSV infection Acute hypoxemic respiratory failure, on oxygen Interstitial lung disease with acute exacerbation HTN, uncontrolled Admission Diagnoses: Interstitial lung disease with acute exacerbation Acute hypoxemic respiratory failure Hypertension Consultants: None. Hospital Course: The patient is a 57-year-old female with history of interstitial lung disease/ hypersensitivity pneumonitis on chronic steroids and hypertension who presented to the ED with new shortness of breath which started earlier in the same day. She is being closely followed by agricultural equipment salesperson Dr. Abbott in the outpatient setting. She was given IV steroids when she was in the hospital. Respiratory panel revealed RSV infection. Patient was feeling a little better and wanted to continue recovering at home. The assembler carbon brushes Pump Erector Helper recommended the patient stay on the same dose of steroid and start PCP prophylaxis with Bactrim SS for immunosuppressed status. She will continue her nebulizer treatments at home. She is being discharged with home oxygen. Physical Exam: General: The patient is a female who is alert and in no acute distress. HEENT: normocephalic, extraocular movements intact, conjunctivae clear, no lesions on face. Mucous membranes moist. Neck: trachea midline, no visible masses, no external lesions. CV: +S1/S2, RRR, no MRG. Resp: unlabored, bilateral crackles/wheezing. Abd: soft and nondistended. Musculoskeletal: Normal muscle tone and bulk. Neuro: cranial nerves II - XII grossly intact. Intact gross motor and sensory function. Psych: appropriate mood/affect. Skin: No pallor. Heme/lymph: No pitting peripheral edema. Condition: Fair. Discharged to: Home. Pertinent tests/labs/imaging: Chest x-ray- ground-glass opacities of mid to lower lungs. Medications: Please see med rec form. Lisinopril was increased to 20 mg daily for high blood pressure. Bactrim SS daily. Special instructions: 1) For blood pressure: for SBP > 140 or DBP > 90, take 20mg lisinopril (2 tabs) instead of 1 tab. Keep this consistent and tell your PCP when you make your follow up visit about the high blood pressure. Daily blood pressure checks. 2) Frequent SpO2 (pulse oximetry) checks -- wear 2L O2 and titrate as needed for SpO2 90%. 3) Return to ED if symptoms worsen. Follow up: Follow up with PCP Dr. Reynoso set in 1 week. Follow up with Dr. Abbott agricultural equipment salesperson in 1 week.
--- NOTE | 2018-06-04 10:27 | ASMTLACE ---
LACE Length of stay for Answers: Less than 1 day current admission Acuity / Level of Answers: No Care: Did the patient have an inpatient admission? 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
--- NOTE | 2018-06-04 10:35 | ASMTCMCOM ---
CM Note CM Note Notes: Chart reviewed. Patient was discharegd to home with RSV and began to feel increasingly sob which brought her to ED. She is now medically cleared for discharge to home on oxygen. No other needs noted at this time. CM available should needs arise. Plan: dc to home with oxygen and family support. Date Signed: 06/04/2018 10:35 AM Electronically Signed By:Consuelo Hartman RN
--- NOTE | 2018-06-04 10:37 | ASMTDCNOTE ---
Case Management Discharge Discharge Order Complete? Answers: Yes Patient to Obtain Answers: via Family Medications Transportation Arranged Answers: Family/Friends Family Notified Answers: Yes Discharge Comments Notes: patient cleared for discharge she will require home oxygen. Date Signed: 06/04/2018 10:37 AM Electronically Signed By:Consuelo Hartman RN
[2018-06-04] MEDS ORDERED: SERTRALINE HCL 50 MG TAB PO SCH (21:00)
[2018-06-04] MEDS ORDERED: amLODIPine BESYLATE 5 MG TAB PO SCH (21:00)
[2018-06-04] MEDS ORDERED: LISINOPRIL 10 MG TAB PO SCH (21:00)
[2018-06-04] MEDS ORDERED: ASPIRIN EC 81 MG TAB PO SCH (21:00)
== END 2018-06-04 13:17 | disposition home or self-care (01) ==
LOC: F1N 22:59
PROVIDERS: ADMIT Internal Medicine; ATTEND Internal Medicine
DX: J12.1 Respiratory syncytial virus pneumonia (principal); J96.01 Acute respiratory failure with hypoxia; J84.9 Interstitial pulmonary disease, unspecified; B97.4 Respiratory syncytial virus as the cause of diseases classified elsewhere; I10 Essential (primary) hypertension; I25.10 Atherosclerotic heart disease of native coronary artery without angina pectoris; M79.7 Fibromyalgia; Z79.51 Long term (current) use of inhaled steroids; Z79.52 Long term (current) use of systemic steroids; Z87.01 Personal history of pneumonia (recurrent); Z86.73 Personal history of transient ischemic attack (TIA), and cerebral infarction without residual deficits; Z98.1 Arthrodesis status; Z88.0 Allergy status to penicillin
CPT/HCPCS: 71046; 96365; 96372; 96375; 96376; 99285; G0378; J1650; J1956; J2930; J7613

== ENCOUNTER → 2018-11-10 | Outpatient (CLI) | payer OTHER | LOC: CIMAGING 13:00 ==